=== PATIENT | female | born 1980 | race Two or more races ===

== ENCOUNTER 2017-08-17 20:01 | Emergency (ER) | payer SELFPAY ==
[~2017-08-17] VITALS: Ht 172.7 cm; Wt 61.2 kg
[2017-08-17 20:02] VITALS: BP 103/64
--- NOTE | 2017-08-17 20:33 | Emergency Room Report ---
History of Present Illness General Chief Complaint: Pain Source: Patient Present Illness HPI 37-year-old female, no significant past medical history, presenting with right ankle pain and swelling. States that she twisted and fell today. Has been walking with a limp. No head trauma no LOC Allergies: Coded Allergies: No Known Allergies (Unverified , 08/17/17) Patient History Past Medical History: see triage record Past Surgical History: none Pertinent Family History: none Last Menstrual Period: 08/11/17 Now: No Reviewed Nursing Documentation: PMH: Agreed, PSxH: Agreed Nursing Documentation-PMH Past Medical History: No History, Except For Hx Asthma: Yes Review of Systems All Other Systems: negative except mentioned in HPI Physical Exam Vital Signs Date Time Temp Pulse Resp B/P (MAP) Pulse Ox O2 Delivery O2 Flow Rate FiO2 08/17/17 19:52 97.2 74 16 103/64 100 Room Air Sp02 EP Interpretation: reviewed, normal General Appearance: normal inspection, well appearing, no apparent distress, alert, GCS 15, non-toxic Head: normocephalic, atraumatic Eyes: bilateral eye normal inspection, bilateral eye PERRL, bilateral eye EOMI ENT: normal ENT inspection, normal pharynx, normal voice, moist mucus membranes Neck: normal inspection, full range of motion, supple Respiratory: normal inspection, lungs clear, normal breath sounds, no respiratory distress, no retraction, no wheezing, speaking full sentences, chest symmetrical Cardiovascular #1: normal inspection, regular rate, rhythm, no edema, normal capillary refill Cardiovascular #2: 2+ radial (R), 2+ radial (L) Gastrointestinal: normal inspection, non tender, soft, non-distended, no guarding Musculoskeletal: other - Right foot edema, ecchymosis, tender to palpation lateral and medial malleolus, limited range of motion secondary to pain Neurologic: normal inspection, alert, oriented x3, responsive, motor strength/ tone normal, sensory intact, normal gait, speech normal Psychiatric: normal inspection, judgement/insight normal, memory normal Skin: normal inspection, normal color, no rash, warm/dry, well hydrated, normal turgor Procedures Splinting Splinting : Consent: Verbal Location: R ankle Pre-Made Type: VJ wrap Medical Decision Making Diagnostic Impression: Primary Impression: Ankle pain, right ER Course 37-year-old female with right ankle pain DDX: Sprain/strain vs. fracture Plan: Pain control with motrin XR ER course: Patient reports improvement of pain with motrin. XR reveals soft tissue swelling without fracture VJ bandage applied. Disposition: Patient is to be discharged home Patient educated to rest, ice, and elevate extremity and to avoid vigorous activity. Strict precautions discussed with patient on when to return to the emergency room including increased redness or swelling joints, increased pain/swelling of extremity, fever or chills, which could indicate severe illness. Patient is to follow up with their primary care doctor within 5 days. Patient also instructed to follow up with an orthopedic doctor if continuing to have mild/moderate pain as he may need further outpatient imaging. Patient agrees with plan. Please note that this Emergency Department Report was dictated using [employer] technology software, occasionally this can lead to erroneous entry secondary to interpretation by the dictation equipment. Xray ordered: R-foot 3 view Indication: Pain EP Interpretation: Yes Interpretation: No dislocation, no soft tissue swelling, no fractures Impression: No acute disease Electronically signed by Rolanda Dunn MD Xray: Right ankle 3 view Indication: Pain EP Interpretation: Yes Interpretation: No dislocation, no soft tissue swelling, no fractures Impression: No acute disease Electronically signed by Rolanda Dunn MD Last Vital Signs Date Time Temp Pulse Resp B/P (MAP) Pulse Ox O2 Delivery O2 Flow Rate FiO2 08/17/17 19:52 97.2 74 16 103/64 100 Room Air Disposition: HOME, SELF-CARE Condition: Improved Rloanda Dunn M.D. Aug 17, 2017 20:33
[2017-08-17 21:40] VITALS: BP 106/59
[2017-08-17 21:45] VITALS: BP 106/59
--- NOTE | 2017-08-18 09:35 | Diagnostic Imaging Report ---
Indication: Reason For Exam: PAIN Technique: 3 views right foot Comparison: none Findings: No acute fractures. No dislocations. Bony alignment is normal. Joint spaces are preserved Impression: Negative
--- NOTE | 2017-08-18 09:36 | Diagnostic Imaging Report ---
Indication: Ankle pain Technique: 3 views of the right ankle Comparison: none Findings: No acute fractures. No dislocations. Joint spaces are preserved. Normal mineralization. No radiopaque foreign body. Impression: Negative
== END 2017-08-17 21:45 | disposition home or self-care (01) ==
LOC: EDBD 20:01 → EMR 20:02
DX: M25.571 Pain in right ankle and joints of right foot (principal); J45.909 Unspecified asthma, uncomplicated
CPT/HCPCS: 29540; 99284